=== PATIENT | female | born 1955 | race Caucasian/White ===

== ENCOUNTER 2021-04-18 10:30 | Emergency (ER) | payer MEDICARE, BC ==
[~2021-04-18] VITALS: Ht 167.6 cm; Wt 80.0 kg
[~2021-04-18 10:30] MED LIST: ASPI81TA30 PO; CALC-463 PO; CYCL100C2 PO; DULO60CA60 PO; LISI-644 PO; TRAZ150T78 PO
[2021-04-18 11:59] LABS: BASOPHILS % (AUTO) 0.5 % (0-1); EOSINOPHILS # (AUTO) 0.1 X10'3 (0-0.9); HEMATOCRIT 41.1 % (35.0-45.0); HEMOGLOBIN 14.4 g/dl (12.0-16.0); LYMPHOCYTES # (AUTO) 2.3 X10'3 (1.1-4.8); LYMPHOCYTES % (AUTO) 29.8 % (21-51); MEAN CORPUSCULAR HEMOGLOBIN 29.6 PG (27.0-31.0); MEAN CORPUSCULAR VOLUME 84.6 FL (78-98); MEAN PLATELET VOLUME 8.5 FL (7.4-10.4); MONOCYTES # (AUTO) 0.5 X10'3 (0-0.9); MONOCYTES % (AUTO) 7.1 % (2-12); NEUTROPHILS # (AUTO) 4.7 X10'3 (1.8-7.7); NEUTROPHILS % (AUTO) 61.6 % (42-75); PLATELET COUNT 310 X10'3 (140-440); RED BLOOD COUNT 4.85 X10'6 (4.20-5.60); RED CELL DISTRIBUTION WIDTH 14.1 % (11.5-14.5); WHITE BLOOD COUNT 7.6 X10'3 (4.5-11.0)
[2021-04-18 12:00] LABS: CLARITY,URINE SLIGHTLY CLOUDY (Clear); COLOR,URINE STRAW (Yellow); GLUCOSE, URINE NEGATIVE (Neg); KETONES,URINE NEGATIVE (Neg); LEUKOCYTE ESTERASE ,URINE NEGATIVE (Neg); NITRITES, URINE NEGATIVE (Neg); OCCULT BLOOD,URINE NEGATIVE (Neg); PROTEIN,URINE NEGATIVE (Neg); UA COLLECTION TYPE CLN CATCH MIDSTREAM; UROBILINOGEN,URINE 0.2 E.U/dL (0.2-1.0)
[2021-04-18 12:04] LABS: ALANINE AMINOTRANSFERASE 26 U/L (12-78); ALBUMIN 3.7 G/DL (3.4-5.0); ALBUMIN/GLOBULIN RATIO 0.9 (1.1-1.5); ALKALINE PHOSPHATASE 124 IU/L (46-116); ANION GAP 10 (8-16); ASPARTATE AMINO TRANSFERASE 21 U/L (10-37); BILIRUBIN,TOTAL 0.3 MG/DL (0.1-1.0); BLOOD UREA NITROGEN 14 MG/DL (7-18); BUN/CREATININE RATIO 15.6 (6.6-38.0); CALCIUM 8.9 MG/DL (8.5-10.1); CHLORIDE 103 MMOL/L (99-107); GLUCOSE 140 MG/DL (70-104); POTASSIUM 3.2 MMOL/L (3.5-5.1); SODIUM 141 MMOL/L (135-145); eGFR 63 ML/MIN
[2021-04-18] MEDS ORDERED: diphenhydrAMINE 50 mg/ml inj IV ONE (12:10)
[2021-04-18] MEDS ORDERED: metoclopramide 5 mg/ml inj IV ONE (12:10)
[2021-04-18] MEDS ORDERED: normal saline 1000ml 1,000 ML IV ONE (12:10)
[2021-04-18 12:15] LABS: SQUAMOUS EPITHELIAL CELL,UR MANY /LPF (FEW)
[2021-04-18 12:16] LABS: BACTERIA,URINE FEW /HPF (Neg); RBC,URINE 0-2 /HPF (0-2); WBC,URINE 0-4 /HPF (0-4)
[2021-04-18] MEDS ORDERED: LISI-790 PO (12:55)
[2021-04-18 13:20] VITALS: BP 150/82
== END 2021-04-18 13:22 | disposition home or self-care (01) ==
LOC: ER 10:30
DX: R51.9 Headache, unspecified (principal); I10 Essential (primary) hypertension; R55 Syncope and collapse; Z88.2 Allergy status to sulfonamides; Z79.82 Long term (current) use of aspirin; Z79.899 Other long term (current) drug therapy
CPT/HCPCS: 36415; 80053; 81001; 85025; 96374; 96375; 99284; J1200; J2765; J7030

== ENCOUNTER 2023-07-12 12:06 | Outpatient (CLI) | payer MEDICARE, BC ==
[~2023-07-12 12:06] MED LIST changes: +LISI5TAB22 PO
== END 2023-07-12 23:59 | disposition home or self-care (01) ==
LOC: RAD 12:06
PROVIDERS: ATTEND Internal Medicine Gastroenterology
DX: R13.10 Dysphagia, unspecified (principal)
CPT/HCPCS: 74220

== ENCOUNTER 2023-12-28 11:59 | Day surgery (SDC) | payer MEDICARE, BC ==
[2023-12-22 12:02] LABS: BILIRUBIN,URINE NEGATIVE (Neg); CLARITY,URINE CLEAR (Clear); COLOR,URINE STRAW (Yellow); GLUCOSE, URINE >=1000 mg/dl (Neg); KETONES,URINE NEGATIVE (Neg); LEUKOCYTE ESTERASE ,URINE NEGATIVE (Neg); NITRITES, URINE NEGATIVE (Neg); OCCULT BLOOD,URINE NEGATIVE (Neg); PROTEIN,URINE NEGATIVE (Neg); UROBILINOGEN,URINE 0.2 E.U/dL (0.2-1.0)
[2023-12-22 12:07] LABS: BASOPHILS % (AUTO) 0.4 % (0-1); EOSINOPHILS # (AUTO) 0.1 X10'3 (0-0.9); EOSINOPHILS % (AUTO) 1.8 % (0-6); LYMPHOCYTES # (AUTO) 2.3 X10'3 (1.1-4.8); MEAN CORPUSCULAR HEMOGLOBIN 29.3 PG (27.0-31.0); MEAN CORPUSCULAR HGB CONC 32.9 g/dL (33.0-36.5); MEAN PLATELET VOLUME 8.2 FL (7.4-10.4); MONOCYTES # (AUTO) 0.5 X10'3 (0-0.9); MONOCYTES % (AUTO) 8.5 % (2-12); NEUTROPHILS # (AUTO) 3.3 X10'3 (1.8-7.7); NEUTROPHILS % (AUTO) 52.3 % (42-75); PRE OP HEMATOCRIT 47.9 % (35.0-45.0); PRE OP HEMOGLOBIN 15.8 g/dL (12.0-16.0); PRE OP PLATELET COUNT 278 X10'3 (140-440); PRE OP WHITE BLOOD COUNT 6.3 10'3 (4.8-10.8); RED BLOOD COUNT 5.38 X10'6 (4.20-5.60); RED CELL DISTRIBUTION WIDTH 13.3 % (11.5-14.5)
[2023-12-22 12:08] LABS: UA COLLECTION TYPE CLN CATCH MIDSTREAM
[2023-12-22 12:19] LABS: BACTERIA,URINE NONE SEEN /HPF (Neg); RBC,URINE 0-2 /HPF (0-2); WBC,URINE 0-4 /HPF (0-4)
[2023-12-22 12:20] LABS: MUCUS STRANDS NONE SEEN /LPF (Neg); SQUAMOUS EPITHELIAL CELL,UR FEW /LPF (FEW)
[2023-12-22 12:23] LABS: ALBUMIN 4.2 G/DL (3.4-5.0); ALKALINE PHOSPHATASE 108 IU/L (46-116); BLOOD UREA NITROGEN 20 MG/DL (7-18); CALCIUM 10.3 MG/DL (8.5-10.1); CHLORIDE 101 MMOL/L (99-107); CREATININE 0.87 MG/DL (0.40-0.90); PRE OP ALT 27 U/L (30-65); PRE OP ANION GAP 8 (8-16); PRE OP AST 18 U/L (10-37); PRE OP BILIRUB, TOTAL 0.5 MG/DL (0.0-1.0); PRE OP GLUCOSE 99 MG/DL (70-104); PRE OP POTASSIUM 4.1 MMOL/L (3.4-5.1); PRE OP SODIUM 139 MMOL/L (135-145); TOTAL CARBON DIOXIDE 29.7 MMOL/L (24-32); TOTAL PROTEIN 8.3 G/DL (6.4-8.2); eGFR 65 ML/MIN
[~2023-12-28] VITALS: Ht 167.6 cm; Wt 97.0 kg
[2023-12-28] VITALS (8 sets, daily range): BP systolic 120–147; BP diastolic 66–85; PULSE 64–87; RESP 12–16; TEMP 97; O2SAT 96–100
[2023-12-28] MEDS: ceFOXitin 2GM-NS 100mL ADDvant 100 ML IV ONE (05:30)
[~2023-12-28 11:59] MED LIST changes: -ASPI81TA30 PO; -CALC-463 PO; -CYCL100C2 PO; -DULO60CA60 PO; +LEVO100T9 PO; +LINA72CA PO; -LISI-644 PO; -LISI5TAB22 PO; +LOSA50TA64 PO; +METF-1203 PO; +OMAL150S; +VENL150C58 PO
[2023-12-28] MEDS: ringers solution, lacted 1,000 ML IV SCH (12:43)
[2023-12-28] MEDS: famotidine 20mg tablet PO ONE (12:43)
[2023-12-28] MEDS ORDERED: fentaNYL/PF 50MCG/1 ML 2ML syringe ONE (15:42)
[2023-12-28] MEDS ORDERED: midazolam 1 mg/ML 2ml injection ONE (15:42)
[2023-12-28] MEDS ORDERED: rocuronium 10mg/ml inj IV ONE (15:43)
[2023-12-28] MEDS ORDERED: propofol inj 20 ML IV ONE (15:43)
[2023-12-28] MEDS ORDERED: proCHLORperazine 10 MG/2 ml inj IV PRN (15:50)
[2023-12-28] MEDS ORDERED: morphine 2 MG/ML inj. syringe IV PRN (15:50)
[2023-12-28] MEDS ORDERED: meperidine/PF 25mg/ml syringe IV PRN ×2 (15:50)
[2023-12-28] MEDS ORDERED: morphine 4 MG/ML inj SYRINge IV PRN (15:50)
[2023-12-28] MEDS ORDERED: ondansetron/PF 4mg/2ml inj IV PRN (15:50)
[2023-12-28] MEDS ORDERED: ringers solution, lacted 1,000 ML IV SCH (15:50)
[2023-12-28] MEDS ORDERED: BUPIVAcaine 2.5mg/ml inj 50ml vial (contains preservative) ONE (15:55)
[2023-12-28] MEDS ORDERED: sevoflurane 250ml liquid IH ONE (16:03)
[2023-12-28] MEDS ORDERED: dexamethasone sod phosphate 4mg/ml inj. ONE (16:49)
[2023-12-28] MEDS ORDERED: ondansetron/PF 4mg/2ml inj ONE (17:21)
[2023-12-28] MEDS ORDERED: neostigmine methylsulfate 1 MG/ML 10ml vial ONE (17:23)
[2023-12-28] MEDS ORDERED: glycopyrrolate 0.2mg/ml inj ONE (17:23)
[2023-12-28] MEDS ORDERED: acetaminophen 1,000mg/100ml IV 100 ML IV ONE (17:24)
[2023-12-28] MEDS: BUPIVAcaine 2.5mg/ml inj 50ml vial (contains preservative) SQ ONE (17:25)
[2023-12-28] MEDS: meperidine/PF 25mg/ml syringe IV PRN (18:14)
== END 2023-12-28 18:34 | disposition home or self-care (01) ==
LOC: PAS 11:59
PROVIDERS: ATTEND Obstetrics & Gynecology Obstetrics
DX: N83.202 Unspecified ovarian cyst, left side (principal); N83.201 Unspecified ovarian cyst, right side; I10 Essential (primary) hypertension; E11.9 Type 2 diabetes mellitus without complications; Z79.84 Long term (current) use of oral hypoglycemic drugs; Z79.890 Hormone replacement therapy; Z79.899 Other long term (current) drug therapy; Z90.710 Acquired absence of both cervix and uterus; Z98.890 Other specified postprocedural states
CPT/HCPCS: 36415; 58661; 71046; 80053; 81001; 82948; 85025; 86870; 86885; 86900; 86901; 86905; A4618; A7000; J0131; J0694; J1100; J2175; J2250; J2405; J2704; J2710; J3010; J3490; J7030; J7120; Z7506; Z7508; Z7512; Z7610; 86902